=== PATIENT | female | born 1945 | race Caucasian/White ===

== ENCOUNTER → 2017-07-30 | Outpatient (CLI) | payer MEDICARE, OTHER ==
[~2017-07-30] MED LIST: ATORVASTATIN CA10 MG PO; Bentyl20 MG PO; CALCAVITD PO; DOXY100; Effexor Xr37.5 MG PO; Estradiol1 MG PO; MULTI VITAMIN1 EACH PO; OMEP20ER PO; ONDA4; Prilosec Otc20 MG; TRIHYD253B PO
== END ==
LOC: LAB EV 12:03 → LAB SHORT 12:03
DX: K21.9 Gastro-esophageal reflux disease without esophagitis (principal)
CPT/HCPCS: 87338

== ENCOUNTER → 2017-09-03 | Outpatient (CLI) | payer MEDICARE, OTHER ==
[2017-09-03 15:48] LABS: BASOPHILS ABSOLUTE AUTO 0.06 K/mm3 (0.00-0.23); BASOPHILS PERCENT AUTO 1 % (0-2); EOSINOPHILS ABSOLUTE AUTO 0.13 K/mm3 (0.00-0.68); EOSINOPHILS PERCENT AUTO 2 % (0-6); Hematocrit 41.9 % (33.0-51.0); Hemoglobin 14.7 g/dL (11.5-16.0); IMMATURE GRAN ABSOLUTE AUTO 0.02 K/mm3 (0.00-0.10); IMMATURE GRAN PERCENT AUTO 0 % (0-1); LYMPHOCYTES PERCENT AUTO 28 % (21-46); MONOCYTES ABSOLUTE AUTO 0.63 K/mm3 (0.16-1.47); MONOCYTES PERCENT AUTO 9 % (4-13); Mean Corpuscular HGB 32.7 pg (26.0-34.0); Mean Corpuscular HGB Conc 35.1 g/dL (31.5-36.5); Mean Corpuscular Volume 93 fL (80-100); Mean Platelet Volume 10.4 fL (9.1-12.4); NEUTROPHILS ABSOLUTE AUTO 4.46 K/mm3 (1.96-9.15); NEUTROPHILS PERCENT AUTO 60 % (41-73); Platelet Count 310 K/mm3 (150-400); RDW Coefficient Variation 13.7 % (11.7-14.2); RDW Standard Deviation 47.1 fL (35.1-46.3)
[2017-09-03 16:08] LABS: Alanine Aminotransfer (ALT/SGP 29 U/L (12-78); Albumin, Blood 3.5 g/dL (3.4-5.0); Alk Phos 80 U/L (40-126); Anion Gap 7 mmol/L (6-16); Aspartate Aminotrans (AST/SGOT 20 U/L (12-37); Bilirubin, Total 0.5 mg/dL (0.1-1.0); Blood Urea Nitrogen 18 mg/dL (8-24); Bun/Creatinine Ratio 20.5 (12.0-20.0); CO2, Blood 30 mmol/L (21-32); Calcium, Blood 9.2 mg/dL (8.5-10.1); Chloride, Blood 102 mmol/L (98-108); Creatinine, Blood 0.88 mg/dL (0.40-1.00); Globulin, Blood 3.6 g/dL (2.2-4.0); Glomerular Filtration Rate >60 (60-); Glucose, Blood 95 mg/dL (70-99); Potassium, Blood 3.3 mmol/L (3.5-5.5); Sodium, Blood 139 mmol/L (136-145); Thyroid Stimulating Hormone 1.288 uIU/mL (0.360-4.800); Total Protein, Blood 7.1 g/dL (6.4-8.2)
[2017-09-03 16:09] LABS: Troponin I <0.017 ng/mL (0.000-0.040)
== END ==
LOC: LAB EV 15:44 → LAB SHORT 15:44
PROVIDERS: Physician Assistant
DX: R07.9 Chest pain, unspecified (principal); R53.83 Other fatigue
CPT/HCPCS: 80053; 83690; 83880; 84443; 84484; 85025

== ENCOUNTER → 2017-12-10 | Outpatient (CLI) | payer MEDICARE, OTHER ==
[2017-12-10 17:55] LABS: Source, Urine Catheter
[2017-12-10 18:13] LABS: Appearance, Urine Clear (Clear); Bilirubin, Urine Neg (Neg); Blood, Urine Neg (Neg); Color, Urine Yellow (P-Yellow); Glucose Qualitative, Urine Neg (Neg); Ketones, Urine Neg (Neg); Leukocyte Esterase, Urine 1+ (Neg); Nitrite, Urine Neg (Neg); Protein, Urine Neg (Neg); Specific Gravity, Urine 1.005 (1.003-1.022); Urobilinogen, Urine NORM (Normal)
[2017-12-10 18:28] LABS: Bacteria Rare /hpf; Red Blood Cells, Urine 0-2 /hpf (0-2); Squamous Epithelial Cells Few /hpf (Few)
== END ==
LOC: LAB SHORT 17:53 → LAB 17:53
PROVIDERS: Obstetrics & Gynecology
DX: R30.0 Dysuria (principal)
CPT/HCPCS: 81001; 87086

== ENCOUNTER 2018-09-23 12:41 | Emergency (ER) | payer MEDICARE, OTHER ==
[~2018-09-23] VITALS: Ht 170.2 cm; Wt 84.8 kg
[2018-09-23] MEDS ORDERED: Spironolactone25 MG PO (13:01)
[2018-09-23] MEDS ORDERED: Neurontin 300300 MG PO (13:02)
[2018-09-23] MEDS ORDERED: Nortriptyline H25 MG PO (13:03)
== END 2018-09-23 14:25 | disposition home or self-care (01) ==
LOC: ER 12:41
DX: R07.89 Other chest pain (principal); R11.0 Nausea; T40.2X5A Adverse effect of other opioids, initial encounter
CPT/HCPCS: 99283

== ENCOUNTER → 2020-01-20 | Outpatient (CLI) | payer MEDICARE, OTHER ==
[~2020-01-20] MED LIST changes: +Neurontin 300300 MG PO; +Nortriptyline H25 MG PO; +Spironolactone25 MG PO
[2020-01-21 10:28] LABS: Stool Occult Bld Immuno 1 Negative (NEGATIVE)
== END | disposition home or self-care (01) ==
LOC: LAB SHORT 12:05 → LAB EV 12:05
PROVIDERS: Student in an Organized Health Care Education/Training Program
DX: Z12.11 Encounter for screening for malignant neoplasm of colon (principal); Z12.12 Encounter for screening for malignant neoplasm of rectum
CPT/HCPCS: G0328

== ENCOUNTER 2020-04-03 17:12 | Emergency (ER) | payer MEDICARE, OTHER ==
[~2020-04-03] VITALS: Ht 170.2 cm; Wt 89.8 kg
[2020-04-03] MEDS ORDERED: LYRICA150 M1 PO (17:44)
[2020-04-03] MEDS ORDERED: TRAZ50 PO (17:44)
[2020-04-03] MEDS ORDERED: MELO7.5 PO (17:46)
[2020-04-03 18:38] LABS: BASOPHILS ABSOLUTE AUTO 0.05 K/mm3 (0.00-0.23); BASOPHILS PERCENT AUTO 0 % (0-2); EOSINOPHILS ABSOLUTE AUTO 0.17 K/mm3 (0.00-0.68); EOSINOPHILS PERCENT AUTO 1 % (0-6); Hematocrit 40.4 % (33.0-51.0); Hemoglobin 13.2 g/dL (11.5-16.0); IMMATURE GRAN ABSOLUTE AUTO 0.08 K/mm3 (0.00-0.10); IMMATURE GRAN PERCENT AUTO 1 % (0-1); LYMPHOCYTES ABSOLUTE AUTO 1.03 K/mm3 (0.84-5.20); LYMPHOCYTES PERCENT AUTO 7 % (21-46); MONOCYTES ABSOLUTE AUTO 0.78 K/mm3 (0.16-1.47); MONOCYTES PERCENT AUTO 5 % (4-13); Mean Corpuscular HGB 32.1 pg (26.0-34.0); Mean Corpuscular HGB Conc 32.7 g/dL (31.5-36.5); Mean Corpuscular Volume 98 fL (80-100); NEUTROPHILS ABSOLUTE AUTO 13.35 K/mm3 (1.96-9.15); NEUTROPHILS PERCENT AUTO 86 % (41-73); Platelet Count 352 K/mm3 (150-400); RDW Coefficient Variation 13.9 % (11.7-14.2); RDW Standard Deviation 50.4 fL (35.1-46.3); Red Blood Cell Count 4.11 M/mm3 (3.80-5.20); White Blood Cell Count 15.46 K/mm3 (4.00-11.30)
[2020-04-03] MEDS ORDERED: TRAM50 PO (19:00)
[2020-04-03 19:01] LABS: Alanine Aminotransfer (ALT/SGP 31 U/L (12-78); Albumin, Blood 3.6 g/dL (3.4-5.0); Alk Phos 86 U/L (50-136); Anion Gap 12 mmol/L (6-16); Aspartate Aminotrans (AST/SGOT 32 U/L (12-37); Bilirubin, Total 0.8 mg/dL (0.1-1.0); Blood Urea Nitrogen 28 mg/dL (8-24); Bun/Creatinine Ratio 25.9 (12.0-20.0); CO2, Blood 27 mmol/L (21-32); Calcium, Blood 9.6 mg/dL (8.5-10.1); Chloride, Blood 103 mmol/L (98-108); Creatinine, Blood 1.08 mg/dL (0.40-1.00); Globulin, Blood 3.5 g/dL (2.2-4.0); Glomerular Filtration Rate 53 (60-); Glucose, Blood 99 mg/dL (70-99); Potassium, Blood 3.1 mmol/L (3.5-5.5); Sodium, Blood 142 mmol/L (136-145); Total Protein, Blood 7.1 g/dL (6.4-8.2); Troponin I <0.015 ng/mL (0.000-0.040)
== END 2020-04-03 19:40 | disposition home or self-care (01) ==
LOC: ER 17:12
PROVIDERS: Emergency Medicine
DX: L50.9 Urticaria, unspecified (principal); R55 Syncope and collapse; T42.6X5A Adverse effect of other antiepileptic and sedative-hypnotic drugs, initial encounter; Z88.2 Allergy status to sulfonamides; Z88.0 Allergy status to penicillin; Z91.09 Other allergy status, other than to drugs and biological substances; Z88.8 Allergy status to other drugs, medicaments and biological substances; Z88.1 Allergy status to other antibiotic agents; Z87.891 Personal history of nicotine dependence
CPT/HCPCS: 71045; 80053; 84484; 85025; 96374; 96375; 99284-25; J2930

== ENCOUNTER 2020-12-30 16:50 | Emergency (ER) | payer MEDICARE, OTHER ==
[~2020-12-30] VITALS: Ht 172.7 cm; Wt 65.8 kg
[~2020-12-30 16:50] MED LIST changes: +LYRICA150 M1 PO; +MELO7.5 PO; +TRAM50 PO; +TRAZ50 PO
[2020-12-30 17:45] LABS: Magnesium, Blood 1.3 mg/dL (1.6-2.4); Phosphorus, Blood 2.2 mg/dL (2.5-4.9)
[2020-12-30] MEDS ORDERED: Macrobid 100 M100 MG PO (20:36)
[2020-12-30] MEDS ORDERED: K-Dur20 MEQ PO ×2 (20:39→21:00)
[2020-12-31] MEDS ORDERED: MAGNESIUM OXID500 MG PO (15:10)
== END 2020-12-30 21:15 | disposition home or self-care (01) ==
LOC: ER 16:50
PROVIDERS: Physician Assistant
DX: G44.209 Tension-type headache, unspecified, not intractable (principal); G43.909 Migraine, unspecified, not intractable, without status migrainosus; E87.6 Hypokalemia; N39.0 Urinary tract infection, site not specified; M54.2 Cervicalgia; G89.29 Other chronic pain; M79.7 Fibromyalgia; Z88.8 Allergy status to other drugs, medicaments and biological substances; Z88.2 Allergy status to sulfonamides; Z88.1 Allergy status to other antibiotic agents; Z91.048 Other nonmedicinal substance allergy status; Z88.5 Allergy status to narcotic agent; Z79.899 Other long term (current) drug therapy; Z87.891 Personal history of nicotine dependence
CPT/HCPCS: 36415; 70450; 83735; 84100; 84132; 93005; 93010; 99284-25; A9270; J3480

== ENCOUNTER → 2021-01-06 | Outpatient (CLI) | payer MEDICARE, OTHER ==
[~2021-01-06] MED LIST changes: +K-Dur20 MEQ PO; +MAGNESIUM OXID500 MG PO; +Macrobid 100 M100 MG PO
== END | disposition home or self-care (01) ==
LOC: LAB SHORT 15:26 → LAB 15:26
DX: N39.0 Urinary tract infection, site not specified (principal)
CPT/HCPCS: 87086

== ENCOUNTER 2022-01-13 17:20 | Emergency (ER) | payer OTHER, MEDICARE ==
[~2022-01-13] VITALS: Ht 170.2 cm; Wt 87.5 kg
[~2022-01-13 17:20] MED LIST changes: +BACLOFEN5 M1; +GABA100; +PANT20; +Primidone50 MG; +Tamiflu75 MG PO; +VENL25
[2022-01-13 18:07] LABS: BASOPHILS ABSOLUTE AUTO 0.06 K/mm3 (0.00-0.23); BASOPHILS PERCENT AUTO 1 % (0-2); EOSINOPHILS ABSOLUTE AUTO 0.08 K/mm3 (0.00-0.68); EOSINOPHILS PERCENT AUTO 1 % (0-6); Hematocrit 44.2 % (33.0-51.0); IMMATURE GRAN ABSOLUTE AUTO 0.01 K/mm3 (0.00-0.10); IMMATURE GRAN PERCENT AUTO 0 % (0-1); LYMPHOCYTES ABSOLUTE AUTO 1.54 K/mm3 (0.84-5.20); LYMPHOCYTES PERCENT AUTO 27 % (21-46); MONOCYTES ABSOLUTE AUTO 0.54 K/mm3 (0.16-1.47); MONOCYTES PERCENT AUTO 10 % (4-13); Mean Corpuscular HGB 32.5 pg (26.0-34.0); Mean Corpuscular HGB Conc 33.9 g/dL (31.5-36.5); Mean Corpuscular Volume 96 fL (80-100); Mean Platelet Volume 10.6 fL (9.1-12.4); NEUTROPHILS ABSOLUTE AUTO 3.42 K/mm3 (1.96-9.15); NEUTROPHILS PERCENT AUTO 60 % (41-73); Platelet Count 307 K/mm3 (150-400); RDW Coefficient Variation 13.8 % (11.7-14.2); RDW Standard Deviation 48.9 fL (35.1-46.3); Red Blood Cell Count 4.61 M/mm3 (3.80-5.20); White Blood Cell Count 5.65 K/mm3 (4.00-11.30)
[2022-01-13 18:26] LABS: Albumin, Blood 3.8 g/dL (3.4-5.0); Albumin/Globulin Ratio 1.4 (0.8-1.8); Bilirubin, Total 0.4 mg/dL (0.1-1.0); Bun/Creatinine Ratio 10.6 (12.0-20.0); Calcium, Blood 9.5 mg/dL (8.5-10.1); Creatinine, Blood 0.85 mg/dL (0.40-1.00); Globulin, Blood 2.8 g/dL (2.2-4.0); Potassium, Blood 4.2 mmol/L (3.5-5.5); Total Protein, Blood 6.6 g/dL (6.4-8.2)
== END 2022-01-13 21:31 | disposition home or self-care (01) ==
LOC: ER 17:20
PROVIDERS: Physician Assistant
DX: R23.0 Cyanosis (principal); R53.1 Weakness; R55 Syncope and collapse; Z79.899 Other long term (current) drug therapy; Z88.8 Allergy status to other drugs, medicaments and biological substances; Z88.2 Allergy status to sulfonamides; Z88.5 Allergy status to narcotic agent; Z91.09 Other allergy status, other than to drugs and biological substances; Z96.653 Presence of artificial knee joint, bilateral; Z87.891 Personal history of nicotine dependence
CPT/HCPCS: 36415; 80053; 85025; 93005; 93010; 93971; J2405

== ENCOUNTER 2023-05-06 23:19 | Emergency (ER) | payer MEDICARE, OTHER ==
[~2023-05-06] VITALS: Ht 170.2 cm; Wt 81.7 kg
[2023-05-06 23:52] LABS: BASOPHILS ABSOLUTE AUTO 0.08 K/mm3 (0.00-0.23); BASOPHILS PERCENT AUTO 1 % (0-2); EOSINOPHILS PERCENT AUTO 1 % (0-6); Hematocrit 44.4 % (33.0-51.0); Hemoglobin 15.3 g/dL (11.5-16.0); IMMATURE GRAN ABSOLUTE AUTO 0.01 K/mm3 (0.00-0.10); IMMATURE GRAN PERCENT AUTO 0 % (0-1); LYMPHOCYTES ABSOLUTE AUTO 2.93 K/mm3 (0.84-5.20); LYMPHOCYTES PERCENT AUTO 37 % (21-46); MONOCYTES PERCENT AUTO 9 % (4-13); Mean Corpuscular HGB 31.4 pg (26.0-34.0); Mean Corpuscular HGB Conc 34.5 g/dL (31.5-36.5); Mean Corpuscular Volume 91 fL (80-100); Mean Platelet Volume 10.3 fL (9.1-12.4); NEUTROPHILS ABSOLUTE AUTO 4.11 K/mm3 (1.96-9.15); NEUTROPHILS PERCENT AUTO 52 % (41-73); NRBC ABSOLUTE 0.02 K/mm3 (0.00-0.02); NRBC Auto 0.3 /100 WBC (0.0-0.2); Platelet Count 346 K/mm3 (150-400); RDW Standard Deviation 43.9 fL (35.1-46.3); Red Blood Cell Count 4.88 M/mm3 (3.80-5.20); White Blood Cell Count 7.93 K/mm3 (4.00-11.30)
[2023-05-07 00:11] LABS: Albumin, Blood 3.8 g/dL (3.4-5.0); Albumin/Globulin Ratio 1.1 (0.8-1.8); Bilirubin, Total 0.5 mg/dL (0.1-1.0); Bun/Creatinine Ratio 26.7 (12.0-20.0); Calcium, Blood 10.6 mg/dL (8.5-10.1); Creatinine, Blood 1.2 mg/dL (0.40-1.00); Globulin, Blood 3.5 g/dL (2.2-4.0); Potassium, Blood 2.9 mmol/L (3.5-5.5); Total Protein, Blood 7.3 g/dL (6.4-8.2)
[2023-05-07] MEDS ORDERED: Potassium Chloride 20 MEQ/15 ML UDC PO ONE (01:40)
[2023-05-07] MEDS ORDERED: ROSUVASTATIN CA10 MG PO (02:06)
[2023-05-07] MEDS ORDERED: FUROSEMIDE20 MG PO (02:06)
[2023-05-07 04:15] VITALS: BP 133/76
== END 2023-05-07 05:10 | disposition home or self-care (01) ==
LOC: ER 23:19
PROVIDERS: Emergency Medicine
DX: E87.6 Hypokalemia (principal); R07.9 Chest pain, unspecified; F41.9 Anxiety disorder, unspecified; Z88.8 Allergy status to other drugs, medicaments and biological substances; Z88.2 Allergy status to sulfonamides; Z88.0 Allergy status to penicillin; Z88.5 Allergy status to narcotic agent; Z91.048 Other nonmedicinal substance allergy status; Z79.899 Other long term (current) drug therapy; Z87.891 Personal history of nicotine dependence
CPT/HCPCS: 71275; 80053; 84484; 85025; 93005; 93010; 99285-25; A9270; Q9967

== ENCOUNTER 2025-01-26 07:51 | Day surgery (SDC) | payer MEDICARE, OTHER ==
[~2025-01-26] VITALS: Ht 170.2 cm; Wt 78.8 kg
[2025-01-26] VITALS (54 sets, daily range): BP systolic 99–201; BP diastolic 31–160
[~2025-01-26 07:51] MED LIST changes: +FUROSEMIDE20 MG PO; -GABA100; +GABA100 PO; +PANT40 PO; +ROSUVASTATIN CA10 MG PO
--- NOTE | 2025-01-26 08:35 | NUR ---
01/26/25 0835 Bessie Carlson CONFIRMED AND REVIEWED H&P, MEDCICATIONS, ALLERGIES, MEDICAL HISTORY, RESPIRATORY HISTORY, VITAL SIGNS, 3-LEAD EKG, CONSENTS, AND PHYSICIAN ORDERS. PATIENT CONFIRMS NPO STATUS AND AGREES WITH SCHEDULED PROCEDURE. MONITOR INTACT WITH CONTINUOUS PULSE OXIMETRY, CAPNOGRAPHY, 3-LEAD EKG, INTERMITTENT BP. SUPPLEMENTAL O2 TO BE TITRATED THROUGHOUT PROCEDURE TO MAINTAIN O2 SATURATION ABOVE 90%. PATIENT DETERMINED TO BE ASA APPROPRIATE FOR PROPOFOL SEDATION PRIOR TO START OF PROCEDURE BY DR. SPARROW
--- NOTE | 2025-01-26 09:01 | NUR ---
Ambulatory in Day Surgery. History, Chart, Medications and Allergies reviewed before start of procedure. Lungs clear T/O to Auscultation. Patient confirms NPO status and agrees with scheduled surgery. Pre-Op teaching done. Pt verbalizes understanding. Patient States Post-Procedure ride home has been arranged.
--- NOTE | 2025-01-26 11:26 | NUR ---
Discharge instructions reviewed with patient. Patient verbalizes understanding. Copy given to patient to take home. Patient States Post-Procedure ride home has been arranged. Discharged via wheelchair to private car for ride home.
== END 2025-01-26 23:00 | disposition home or self-care (01) ==
LOC: ORSCMMR 07:51 → ORD 09:30 → ORSCMMR 09:30
PROVIDERS: Surgery
PROC: 0DBH8ZX Excision of Cecum, Via Natural or Artificial Opening Endoscopic, Diagnostic (ICD-10-PCS; principal; 2025-01-26 09:30)
DX: Z12.11 Encounter for screening for malignant neoplasm of colon (principal); D12.0 Benign neoplasm of cecum; K64.4 Residual hemorrhoidal skin tags; Z86.0101 Personal history of adenomatous and serrated colon polyps; I10 Essential (primary) hypertension; J44.9 Chronic obstructive pulmonary disease, unspecified; F41.9 Anxiety disorder, unspecified; E78.5 Hyperlipidemia, unspecified; K21.9 Gastro-esophageal reflux disease without esophagitis; E03.9 Hypothyroidism, unspecified; Z79.82 Long term (current) use of aspirin; Z79.899 Other long term (current) drug therapy; Z87.891 Personal history of nicotine dependence
CPT/HCPCS: 82947; 88305; J2704; J7120